=== PATIENT | male | born 1985 | race Caucasian/White ===

== ENCOUNTER 2021-09-06 15:00 | Emergency (ER) | payer OTHER, SELFPAY ==
[2021-09-06 15:01] VITALS: BP 157/96; PULSE 85; RESP 16; TEMP 36.9; O2SAT 96; BMI 33.2
--- NOTE | 2021-09-06 15:14 | PC.NURSE ---
pt L ring finger soaking in hibiclens and saline
--- NOTE | 2021-09-06 15:17 | PC.NURSE ---
JHONATAN DAVIS at
--- NOTE | 2021-09-06 15:19 | XR_ITS ---
FINAL REPORT CLINICAL HISTORY: drill, trauma, laceration distal tip of 4th digit FINDINGS: LEFT FINGER 3 views of the left 4th digit were obtained. There is no acute fracture or dislocation. The joint spaces are intact. There is a questionable less than 1 mm foreign body in the volar distal aspect of the 4th digit. IMPRESSION: No acute bony abnormality. Questionable foreign body as described. Reviewed, Interpreted and Dictated by Man Browne III, MD Transcribed by Lilliam Garcia Authenticated and [facility][1]
--- NOTE | 2021-09-06 15:19 | HMH.EDGENADL ---
ED Disposition Clinical Impression: Laceration of left ring finger Qualifiers: Encounter type: initial encounter Damage to nail status: without damage Foreign body presence: without foreign body Qualified Code(s): S61.215A - Laceration without foreign body of left ring finger without damage to nail, initial encounter Disposition: Home, Self-Care Condition on Discharge: Good Instructions: DI for Laceration Repair Additional Instructions: You have been evaluated for laceration to the left ring finger. Sutures are absorbable. They should dissolve. Have a wound check with your primary care doctor within the next few days. Any remaining sutures should be removed in 7 to 10 days. Take Keflex as prescribed. Use triple antibiotic ointment. Keep wound dry for 24 hours, you may shower normally after that. Return to the emergency department for any new or worsening symptoms, redness, wound drainage, pain, swelling, signs of infection. Prescriptions: cephALEXin [cephALEXin 500mg capsule*] 500 mg PO Q6H #20 cap Transmission Status: Received by [facility] Referrals: Provider,Referral, [Primary Care Provider] - Time of Disposition: 15:24 - Critical Care Critical Care Time: No Attestation: On , the high probability of a clinically significant, sudden or life threatening deterioration of the following system(s) required my full and direct attention, intervention and personal management. The time I documented below is in addition to time spent performing reported procedures but includes the following listed in this critical care notation. Medical Decision Making - Medical Records Medical records reviewed: Yes: I reviewed the patient's medical records. - Ramy Inquiry Pt receiving controlled substance: No Vital Signs: 09/06/21 15:01 09/06/21 16:22 Temperature 98.4 F 98 F Temperature Source Oral Oral Pulse Rate 74 Pulse Rate [Right Radial] 85 Respiratory Rate 16 16 Blood Pressure 136/65 Blood Pressure [Right Arm] 157/96 H Blood Pressure Mean [Right Arm] 116 Blood Pressure Source [Right Arm] Automatic Cuff Blood Pressure Position Sitting Blood Pressure Position [Right Arm] Sitting 02 Sat by Pulse Oximetry 96 Oxygen Delivery Method Room Air Room Air Orders (Tests/Meds): ED MEDICATIONS Discontinued Medications Generic Name Dose Route Start Last Admin Trade Name Freq PRN Reason Stop Dose Admin Lidocaine HCl 5 ml 09/06/21 15:19 09/06/21 15:32 Lidocaine 1% 10ml Mdv SQ 06/06/22 15:20 5 ml ONCE ONE Administration Tetanus/Reduced Diphtheria/Acell Pertussis 0.5 ml 09/06/21 15:14 09/06/21 15:31 Tet/Diphth/Pert-Adult 0.5ml Syringe IM 09/06/21 15:15 0.5 ml .ONCE ONE Administration - Radiology Data #1 Image(s): Finger(s)/Thumb Image Reviewed: Yes I reviewed the patient's radiology results, Yes I discussed the image results w/the radiologist Preliminary Findings: Abnormal Medical Decision Narrative: In summary this is a previously healthy, [id number] male presenting to the emergency department with an injury to the ring finger of the left hand. Patient clinically stable on arrival. Vital signs within normal limits. Wound copiously irrigated. Will obtain x-ray. Tetanus updated. X-ray shows no distal tuft fracture. Comment on a possibly less than 1 mm foreign body. Digital block performed with 1% lidocaine. I explored the wound. No foreign body identified. Laceration repaired with 2 absorbable sutures. Procedure well-tolerated. Patient given prescription for Keflex. Counseled on the importance of PCP follow-up. Given return precautions. Stable for discharge. General Adult HPI - General Chief complaint: Wound/Laceration Stated complaint: laceration on left hand ring finger Time Seen by Provider: 09/06/21 15:19 Mode of Arrival: Ambulatory Limitations: No Limitations Description of Symptoms (Recalled from ER Triage Doc. by RN): pt reports a
--- NOTE | 2021-09-06 15:22 | PC.NURSE ---
promise notified of xray order, spoke with krystal
[2021-09-06 16:22] VITALS: BP 136/65; PULSE 74; RESP 16; TEMP 36.6; O2SAT 98
== END 2021-09-06 16:24 | disposition home or self-care (01) ==
LOC: ER 16:09
PROVIDERS: Emergency Provider Emergency Medicine
DX: S61.215A Laceration without foreign body of left ring finger without damage to nail, initial encounter (principal); W27.8XXA Contact with other nonpowered hand tool, initial encounter; Y92.89 Other specified places as the place of occurrence of the external cause; Z23 Encounter for immunization
CPT/HCPCS: 12001; 73140; 90471; 90715; 99283

== ENCOUNTER → 2021-09-24 14:22 | Outpatient (CLI) | payer OTHER, SELFPAY ==
--- NOTE | 2021-09-24 14:26 | XR_ITS ---
FINAL REPORT CLINICAL HISTORY: wrist pain - carpel tunnel - numbness FINDINGS: LEFT WRIST Three views of the left wrist demonstrate no acute fracture or dislocation. The visualized joint spaces are normally aligned. The soft tissues are unremarkable. IMPRESSION: No acute bony abnormality. Reviewed, Interpreted and Dictated by Man Browne III, MD Transcribed by Kalpana Sethi Authenticated and . [facility]
--- NOTE | 2021-09-24 14:26 | XR_ITS ---
FINAL REPORT CLINICAL HISTORY: wrist pain - carpel tunnel - numbness FINDINGS: RIGHT WRIST Three views of the right wrist demonstrate no acute fracture or dislocation. The visualized joint spaces are normally aligned. The soft tissues are unremarkable. IMPRESSION: No acute bony abnormality. Reviewed, Interpreted and Dictated by Man Browne III, MD Transcribed by Kalpana Sethi Authenticated and [facility]
== END ==
PROVIDERS: Visit Provider Orthopaedic Surgery
DX: M25.531 Pain in right wrist (principal); M25.532 Pain in left wrist
CPT/HCPCS: 73110

== ENCOUNTER → 2022-03-31 10:16 | Outpatient (CLI) | payer OTHER, SELFPAY ==
--- NOTE | 2022-03-31 10:16 | US_ITS ---
FINAL REPORT TECHNIQUE: Ultrasound images of the testicles were obtained bilaterally. Color Doppler images were obtained. CLINICAL HISTORY: N50.89 - Other specified disorders of the male genital or... Palpable area left testicle x1 month, no injury. FINDINGS: The right testicle measures 4.2 x 3.2 x 2.2 cm. There is normal blood flow. No mass is identified. There is a small right hydrocele. There is a 9 mm calcification adjacent to the inferior right testicle. The left testicle measures 4.8 x 2.9 x 2.3 cm. There is normal blood flow. There is a small left hydrocele. There is a 3 mm cystic area in or adjacent to the periphery of the posterior left testicle, favor a cyst. IMPRESSION: 3 mm cystic area in or adjacent to the periphery of the posterior left testicle, favor a cyst. If indicated, this could be further evaluated with follow-up ultrasound to evaluate for stability. Reviewed, Interpreted and Dictated by Man Browne III, MD Transcribed by Lilliam Garcia Authenticated and [facility]
== END ==
PROVIDERS: PCP Family Medicine; Visit Provider Family Medicine
DX: N50.89 Other specified disorders of the male genital organs (principal)
CPT/HCPCS: 76870

== ENCOUNTER 2022-08-03 18:45 | Emergency (ER) | payer OTHER, SELFPAY ==
[2022-08-03 18:54] VITALS: BP 116/76; PULSE 83; RESP 16; TEMP 36.8; O2SAT 96; BMI 28.7
--- NOTE | 2022-08-03 19:30 | EXP.UTC ---
Discharge Plan Disposition Patient Disposition: Home, Self-Care Condition: Good Prescriptions Prescriptions: No Action prednisone 20 mg tablet See Rx Instructions .ROUTE .COMPLEX Qty: 15 1RF Rx Instructions: two daily for 5d, one daily for 5; naproxen [Naprosyn] 500 mg tablet 500 mg PO BID Qty: 60 3RF Referrals Follow up/Referrals: Provider,Referral, [Primary Care Provider] - See instructions Activity Restrictions/Add. Instructions Additional Instructions/Restrictions: *Monitor Temp, Over the counter Motrin or Tylenol as directed/as needed Tylenol every 4 hours and Motrin every 6 hours (as long as your family doctor has told you that you can take it) for fever or pain. and straight to ER if unable to lower temp less than 101.0 after medication given *Warm salt water gargles may help to soothe the throat *Throat Lozenges? *Warm fluids like tea with honey may help to soothe the throat? *Sleep elevated *Humidifier/Vaporizer Zofran as prescribed for Nausea FOllow up with your Family Doctor if no improvement or any worsening of symptoms Straight to ER if any life threatening symptoms Your throat swab was sent for culture. Those results are typically sent to your primary care. Be sure to follow up in 2-3 days with your family doctor/primary care physician if no improvement so they can review those result and treat if necessary. If you don?t have a primary care doctor Follow up IMMEDIATELY for new or worsening symptoms or no Noticeable improvement over the next 48-72 hours. 911 for difficulty breathing or swallowing Clinical Impressions Clinical Impression: Nausea Instructions Patient Instructions: Nausea (Alternative Therapy), DI for Viral Syndrome, DI for Nausea -- Adult Discharge ED Provider: Betty You [facility] General Stated complaint: Headache,Nausea Mode of Arrival: Ambulatory Source of Information: Patient Limitations: No Limitations Time Seen by Provider: 08/03/22 19:30 Description of Symptoms (Recalled from Triage Doc. by RN): pt c/o a MENON, light headed, nausea, fatigue and loss of appetite. ongoing x5d HEENT Symptoms (Recalled from RN notes): Yes Resp Symptoms (Recalled from RN notes): No Skin Symptoms (Recalled from RN notes): No MS Symptoms (Recalled from RN notes): No Functional Status (Recalled from RN notes): wnl History of Present Illness Provider Complaint: Patient states that he has been having headache on and off, achy, nausea, upset stomach, fatigue and loss of appetite for the last 5 days States that he is feeling better now but stomach is still upset States that he has been sleeping alot and over all not feeling well States that he has been working and is not able to miss work recently dx with Cryptosporidium but he isnt having any diarrhea Related Data Previous Rx's Medication Instructions Recorded naproxen 500 mg tablet (Naprosyn) 500 mg PO BID #60 tabs 06/23/22 prednisone 20 mg tablet See Rx Instructions .Route 06/23/22 .COMPLEX #15 tabs Allergies Allergy/AdvReac Type Severity Reaction Status Date / Time No Known Allergies Allergy Verified 08/03/22 18:56 Worker's Comp Is this a Worker's Comp case?: No [facility] Disclaimer: The information contained in this section may have been updated after the patient was seen, as this information can be updated by other users. Social History Smoking Status: Never smoker alcohol intake: never current occupational status: employed Travel in the last 8 weeks: None ROS Obtained: Yes All systems reviewed & no additional complaints except as documented and Yes Systems reviewed as appropriate & no additional complaints except as documented Constitutional Constitutional: Reports system reviewed and no additional complaints, except as documented, Reports as per HPI, Reports body ache and Reports headache(s) ENT Ears, Nose
[2022-08-03 20:02] VITALS: BP 0/0; PULSE 0; RESP 0; TEMP -17.7; TEMP 0
[2022-08-03 21:19] LABS: Coronavirus 19, PCR Not Detected (NotDetected); Influenza A, PCR Not Detected (NotDetected); Influenza B, PCR Not Detected (NotDetected)
== END 2022-08-03 20:04 | disposition home or self-care (01) ==
PROVIDERS: Emergency Provider Nurse Practitioner
DX: R11.0 Nausea (principal); R51.9 Headache, unspecified; R53.83 Other fatigue
CPT/HCPCS: 96372; 99212; 99214; C9803; G0463; U0003; U0005

== ENCOUNTER 2022-08-03 23:06 | Emergency (ER) | payer OTHER, SELFPAY ==
[2022-08-03 23:16] VITALS: BP 141/94; PULSE 70; RESP 13; TEMP 36.8; O2SAT 99; BMI 28.7
[2022-08-03 23:30] LABS: Basophils % 0.6 % (0.1-2.0); Eosinophils # 0.3 K/mm3 (0.0-0.4); Eosinophils % 5.4 % (0.1-12.0); Hematocrit 44.1 % (42.0-52.0); Hemoglobin 14.5 g/dL (14.1-18.0); Lymphocytes % 21.3 % (10-50); Mean Corpuscular HGB Conc 32.8 g/dL (31.8-35.4); Mean Corpuscular Hemoglobin 27.2 pg (27.0-31.2); Mean Corpuscular Volume 82.7 fl (80-94); Mean Platelet Volume 7.1 fl (7.4-10.4); Monocytes # 0.6 K/mm3 (0.1-1.0); Monocytes % 11.7 % (1.7-9.3); Neutrophils # 2.8 K/mm3 (1.8-7.8); Neutrophils % 60.9 % (37.0-80.0); Platelet Count 216 K/mm3 (142-424); Red Blood Count 5.33 M/mm3 (4.60-6.20); Red Cell Distribution Width 12.9 % (11.5-17.5); White Blood Count 4.7 K/mm3 (4.8-10.8)
[2022-08-03 23:31] VITALS: BP 126/81; PULSE 68; RESP 18; O2SAT 98
[2022-08-03 23:31] LABS: Chloride 92 mmol/L (98-107); Potassium 3.7 mmoL/L (3.5-5.1); Sodium 134 mmol/L (136-145)
[2022-08-03 23:34] LABS: Alanine Aminotransferase 97 U/L (12-78); Albumin Level 3.9 g/dl (3.5-5.0); Albumin/Globulin Ratio 1.4 (1.1-1.8); Alkaline Phosphatase 74 U/L (38-126); Anion Gap 13.7 mEq/L (5-15); Aspartate Amino Transferase 114 U/L (17-59); Bilirubin,Total 0.6 mg/dl (0.2-1.3); Blood Urea Nitrogen 12 mg/dl (9-20); Carbon Dioxide 32 mmol/L (22.0-30.0); Creatinine Clearance Estimated 143 mL/min (50-200); Estimated Glomerular Filt Rate 94 ml/min (>60); GFR (African American) 114 ML/MIN (>60); Globulin 2.7 g/dL (1.3-3.2); Total Protein,Serum 6.6 g/dl (6.3-8.2)
[2022-08-03 23:35] LABS: Calcium 8.5 mg/dl (8.4-10.2); Glucose 100 mg/dl (74-100); Lipase 68 U/L (23-300)
[2022-08-03 23:37] LABS: Monoscreen (Rapid) Negative (Negative)
--- NOTE | 2022-08-03 23:42 | HMH.EDGENADL ---
Discharge Plan Disposition Patient Disposition: Home, Self-Care Chief Complaint: Abdominal Pain Prescriptions Prescriptions: No Action omeprazole 20 mg Tablet,Disintegrat, Delay Rel 20 mg PO DAILY Referrals Follow up/Referrals: Alex Dyer MD [Primary Care Provider] - See instructions Clinical Impressions Clinical Impression: Lethargy Instructions Patient Instructions: DI for Acute Abdominal Pain Discharge ED Provider: Edin Hdz General Adult HPI General Chief complaint: Abdominal Pain Stated complaint: upper abdominal pain, nausea, not eating Time Seen by Provider: 08/03/22 23:22 Mode of Arrival: Family Vehicle Source of Information: Patient Limitations: No Limitations Description of Symptoms (Recalled from ER Triage Doc. by RN): 37 yo male presents with a chief complaint of midepigastric pain/bloating/luq pain with palpation/afebrile but has chills/poor appetite/nausea unsettled stomach /sleeping 12-14 hours a day (abnormal) . Past med history: GERD, Past surg history: none; NKA. 10 LB WEIGHT LOSS in one week. Normal UOP. no obvious skin lesions or anomalies present. Contact with who has scours as a result of interaction with calves. History of Present Illness HPI narrative: 37-year-old white male presents with weakness and some abdominal pain for about a week. He reports that he goes to work and does what he has to do comes home falls asleep and sleeps until he has to go back to work. This is most unusual for him he normally is very healthy eats organic foods as no other medical problem known allergies no known tick bites etc. His did get diarrhea from the calf recently Related Data Home Medications Medication Instructions Recorded Confirmed omeprazole 20 mg delayed 20 mg PO DAILY gerd 08/03/22 08/03/22 release,disintegrating tablet Allergies Allergy/AdvReac Type Severity Reaction Status Date / Time No Known Allergies Allergy Verified 08/03/22 18:56 [facility] Disclaimer: The information contained in this section may have been updated after the patient was seen, as this information can be updated by other users. Social History Smoking Status: Never smoker alcohol intake: never current occupational status: employed Travel in the last 8 weeks: None ROS Obtained: Yes All systems reviewed & no additional complaints except as documented Physical Exam General General appearance: alert and lethargic Head Head exam: atraumatic and normocephalic Eye Eye exam: Present normal appearance ENT ENT exam: Present normal exam Neck Neck exam: Present normal inspection; Absent lymphadenopathy Chest Chest inspection: Present normal inspection Respiratory Respiratory exam: Present normal lung sounds bilaterally; Absent respiratory distress or wheezes Cardiovascular Cardiovascular exam: Present regular rate and normal rhythm Abdominal Exam Abdominal exam: Present soft and tenderness (Left upper quadrant) Neurological Exam Neurological exam: Present alert, oriented X3 and CN II-XII intact Medical Decision Making Medical Records MR Comment: 37-year-old white male presents with a week history of excessive lethargy with some left upper quadrant abdominal pain decreased ability to eat no nausea no fevers chilling but with the report that he is basically asleep every second he is not at work. And has had a little weight loss with this as well. Evaluation has included CBC CMP Monospot urinalysis which is revealed some mild anomalies but some elevation of his liver enzymes. CT abdomen and pelvis with contrast really revealed no pathology that would explain the constellation. Gallbladder was a little dilated but no real pathology was identified. He was given 2 L of normal saline in the emergency department and at this point we have no definitive diagnosis the pathology. Possibilities would include possible tickb
--- NOTE | 2022-08-03 23:45 | PC.NURSE ---
gave pt the urinal to use for urine sample.
[2022-08-03 23:57] LABS: Microscopic, Urine URINE MICROSCOPIC (MICROSCOPIC)
[2022-08-04] VITALS: BP 149/95; PULSE 58; RESP 16; O2SAT 99
[2022-08-04] LABS: Appearance,Urine CLEAR (Clear); Blood, Urine TRACE-I (Negative); Color,Urine YELLOW (Yellow); Glucose,Urine (UA) Negative (Negative); Ketones,Urine TRACE (Negative); Leukocyte Esterase,Urine Negative (Negative); Nitrate,Urine Negative (Negative); Protein,Urine 1+ (Negative); Specific Gravity, Urine 1.015 (1.005-1.030); Urobilinogen,Urine 0.2 EU/dl (0.2)
--- NOTE | 2022-08-04 | CT_ITS ---
PROCEDURE INFORMATION: Exam: CT Abdomen And Pelvis With Contrast Exam date and time: 08/04/2022 12:11 AM Age: 37 years old Clinical indication: Abdominal pain; Localized; Upper; Patient HX: C/O pain since Monday TECHNIQUE: Imaging protocol: Computed tomography of the abdomen and pelvis with contrast. Radiation optimization: All CT scans at this facility use at least one of these dose optimization techniques: automated exposure control; mA and/or kV adjustment per patient size (includes targeted exams where dose is matched to clinical indication); or iterative reconstruction. Contrast material: ISOVUE; Contrast volume: 75 ml; Contrast route: IV; REPORTING DATA: Count of CT and Cardiac NM exams in prior 12 months: This patient has received 0 known CTs and 0 known cardiac nuclear medicine studies in the 12 months prior to the current study. COMPARISON: US TESTICULAR 03/31/2022 10:23 AM FINDINGS: Lungs: The visualized lung bases are clear. Pleural spaces: There are no pleural effusions. Heart: The visualized portions of the heart are unremarkable. There is no evidence of pericardial fluid collections. Liver: There is diffuse decrease in hepatic/liver parenchymal density consistent with fatty infiltration. There is mild intrahepatic biliary ductal dilatation. Gallbladder and bile ducts: There is common bile duct dilatation measuring approximately 12 mm. No definite filling defects. The gallbladder appears mildly prominent measuring 8 by 3.6 cm. No gallbladder wall thickening or pericholecystic fluid. Pancreas: The pancreas is normal. Spleen: The spleen is normal. Adrenal glands: The adrenal glands are normal. Kidneys and ureters: There is a simple 16 mm cyst in the right kidney. There are 2 small left renal hypodensities which are too small to accurately characterize. Statistically, these may be cysts. No hydronephrosis. Stomach and bowel: The stomach is normal. The duodenum is unremarkable. Lack of gastrointestinal contrast limits evaluation of bowel. There is mildly excessive colonic stool content. Unopacified loops of small bowel are within range of normal. Appendix: A normal appendix is identified. Intraperitoneal space: There is no evidence of free intraperitoneal or pelvic fluid. No evidence of intraperitoneal free air. Vasculature: No aneurysm. No dissection. Lymph nodes: There are multiple small nonspecific lymph nodes in the mesenteric fat of the right lower quadrant and central mesentery, but there are no nodes of pathologic dimensions present. There is no evidence of pathologic adenopathy. Urinary bladder: The bladder is incompletely distended.There is moderate bladder wall thickening. Reproductive: The prostate and seminal vesicles are normal. Bones/joints: The thoracolumbar spine demonstrates mild degenerative changes at multiple levels. There is grade 1 anterior spondylolisthesis of L5 on S1 . Bilateral pars interarticularis defects are present.There is no evidence of acute fracture. Soft tissues: There is a tiny fat-containing umbilical hernia. No significant soft tissue edema. IMPRESSION: 1. Mild gallbladder prominence with common bile duct dilatation in minor intrahepatic biliary ductal dilatation.. Recommend right upper quadrant ultrasound for further evaluation. 2. Fatty hepatic infiltration. 3. Moderate bladder wall thickening consistent with chronic outflow obstruction, neoplasm, incomplete distention or cystitis. Correlate clinically and consider urologic consultation. 4. Mild constipation. 5. Multiple small nonspecific lymph nodes in the mesenteric fat of the right lower quadrant and ce
[2022-08-04 00:01] LABS: Bilirubin,Urine 1+ (Negative)
[2022-08-04 00:15] LABS: Bacteria,Urine Trace /lpf; RBC,Urine Occasional #/hpf (0-3); WBC,Urine Occasional #/hpf (0-3)
[2022-08-04 00:30] VITALS: BP 132/79; PULSE 64; RESP 18; O2SAT 100
[2022-08-04 01:01] VITALS: BP 122/75; PULSE 70; RESP 14; O2SAT 98
[2022-08-04 01:31] VITALS: BP 132/81; PULSE 70; RESP 16; O2SAT 100
[2022-08-04 02:15] VITALS: BP 132/70; PULSE 76; RESP 15; TEMP 36.8; O2SAT 98
== END 2022-08-04 02:17 | disposition home or self-care (01) ==
PROVIDERS: Emergency Provider Emergency Medicine; PCP Family Medicine
DX: R10.13 Epigastric pain (principal); R53.83 Other fatigue; R11.0 Nausea
CPT/HCPCS: 74177; 80053; 81001; 83690; 85025; 86318; 96360; 99284; 99285; Q9967

== ENCOUNTER → 2022-08-09 06:24 | Outpatient (CLI) | payer OTHER, SELFPAY ==
--- NOTE | 2022-08-09 06:27 | US_ITS ---
FINAL REPORT TECHNIQUE: Ultrasound images of the abdomen were obtained. CLINICAL HISTORY: abdominal pain, weight loss FINDINGS: The pancreas is obscured by bowel gas. The liver is unremarkable. There is extensive sludge in the gallbladder without stones or wall thickening. There is mild extrahepatic biliary ductal dilatation measuring up to 10 mm. The right kidney measures 13.4 cm in length and is normal in echogenicity without hydronephrosis. The left kidney measures 11.6 cm in length and is normal in echogenicity without hydronephrosis. There are small benign-appearing cysts in the bilateral kidneys. The spleen is mildly enlarged measuring 13 cm. The aorta is normal in caliber. The vena cava is unremarkable. IMPRESSION: Mild nonspecific biliary ductal dilatation. MRCP may be considered if there is abnormal liver function test. Mild nonspecific splenomegaly. Reviewed, Interpreted and Dictated by Karyna Bermudez MD Transcribed by Missy Davis Authenticated and [facility]
== END ==
PROVIDERS: PCP Family Medicine; Visit Provider Family Medicine
DX: R10.9 Unspecified abdominal pain (principal); R63.4 Abnormal weight loss
CPT/HCPCS: 76700

== ENCOUNTER 2023-07-23 20:38 | Emergency (ER) | payer OTHER, SELFPAY ==
[2023-07-23 20:45] VITALS: BP 102/75; PULSE 61; RESP 18; TEMP 36.8; O2SAT 97; BMI 29.9
--- NOTE | 2023-07-23 21:37 | ED_ITS ---
Discharge Plan Disposition Patient Disposition: Home, Self-Care Condition: Good Prescriptions Prescriptions: New cephalexin 500 mg capsule 500 mg PO BID 10 Days Qty: 20 0RF No Action omeprazole 20 mg Tablet,Disintegrat, Delay Rel 20 mg PO DAILY Referrals Follow up/Referrals: Alex Dyer MD [Primary Care Provider] - See instructions Activity Restrictions/Add. Instructions Additional Instructions/Restrictions: You may wash with soap and water. Do not put anything else on the wound. May need to keep a hat on to prevent sunburn. Turn to the ER for any worsening signs or symptoms including drainage pain redness swelling etc. as needed. [place] need to come out in 5 to 7 days Clinical Impressions Clinical Impression: Laceration of scalp Instructions Patient Instructions: DI for Laceration Repair Discharge ED Provider: George Barkley General Adult HPI <ARLYN Fermin - Last Filed: 07/23/23 23:12> General Chief complaint: Wound/Laceration Stated complaint: AO04/ hit head lac across top of head Time Seen by Provider: 07/23/23 21:37 Mode of Arrival: Ambulatory Source of Information: Patient Limitations: No Limitations Description of Symptoms (Recalled from ER Triage Doc. by RN): Pt stated that him and his were having a contest who can put post in with less hits. He was trying to beat his they were putting post in with post digger. He pulled it up caught on post pulled down and hit top of head. He has a laceration on front middle of head. He has described his pain as a 1/10. Denies losing consciousness. This happened at 1730 today. He finished putting in post and then came in here to get it fix. History of Present Illness HPI narrative: Patient presents for evaluation for laceration to his scalp. 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 He was not knocked unconscious but the pain made him drop to his knees. He was able to finish his work and actually presented this evening. Injury occurred around 12 noon today patient reports no loss of sense of taste or smell vision changes nausea vomiting or any other focal neurologic symptoms. Related Data Home Medications Medication Instructions Recorded Confirmed omeprazole 20 mg delayed 20 mg PO DAILY gerd 08/03/22 08/05/22 release,disintegrating tablet Previous Rx's Medication Instructions Recorded cephalexin 500 mg capsule 500 mg PO BID 10 days #20 caps 07/23/23 Allergies Allergy/AdvReac Type Severity Reaction Status Date / Time No Known Allergies Allergy Verified 08/05/22 10:28 [facility] <ARLYN Fermin - Last Filed: 07/23/23 23:12> [facility] Disclaimer: The information contained in this section may have been updated after the patient was seen, as this information can be updated by other users. Family History (Updated 08/05/22 @ 10:36 by Maureen Neville CMA) Other Cancer Heart attack No significant family history Social History Smoking Status: Never smoker alcohol intake: never current occupational status: employed Travel in the last 8 weeks: None <ARLYN Fermin Last Filed: 07/23/23 23:12> ROS Obtained: Yes Systems reviewed as appropriate & no additional complaints except as documented Physical Exam <ARLYN Fermin - Last Filed: 07/23/23 23:12> General General appearance: alert and in no apparent distress Head Head exam: atraumatic (Patient has a 7 cm semilunar laceration to the scalp in the midline anterior) Eye Eye exam: Present normal appearance, PERRL and EOMI ENT ENT exam: Present normal exam, normal oropharynx and mucous membranes moist Neck Neck exam: Present normal inspection, full ROM, trachea midline and tenderness (Tenderness to palpation along the midline of the C-spine but no deformities noted. Patient is neurovascular distally intact bilateral upper extremities); Absent lymphadenopathy Respiratory Respiratory exam: Present normal lung sounds bilaterally Cardiovascular Cardiovascular exam: Present regular rate and normal rhythm Neurological Exam Neurological exam: Present alert, oriented X3, CN II-XII intact and normal gait Medical Decision Making <ARLYN Fermin Last Filed: 07/23/23 23:12> Medical Records Medical records reviewed: Yes I reviewed the patient's medical records. Ramy Inquiry Pt receiving controlled substance: No Vital Signs: 07/23/23 20:45 Temperature 98.3 F Temperature Source Oral Pulse Rate [Right Radial] 61 Respiratory Rate 18 Blood Pressure [Right Arm] 102/75 L Blood Pressure Mean [Right Arm] 84 Blood Pressure Source [Right Arm] Automatic Cuff Blood Pressure Position [Right Arm] Sitting 02 Sat by Pulse Oximetry 97 Oxygen Delivery Method Room Air Orders (Tests/Meds): ED MEDICATIONS Discontinued Medications Generic Name Dose Route Start Last Admin Trade Name Bryan PRN Reason Stop Dose Admin Acetaminophen 1,000 mg 07/23/23 22:21 07/23/23 22:37 Acetaminophen 500mg Tab PO 07/23/23 22:22 1,000 mg ONCE ONE Administration Ketorolac Tromethamine 30 mg 07/23/23 22:21 07/23/23 22:39 Ketorolac 30mg/Ml Vial IM 07/23/23 22:22 30 mg ONCE ONE Administration Lidocaine HCl 10 ml 07/23/23 22:23 07/23/23 22:39 Lidocaine 1% 10ml Mdv SQ 07/23/23 22:24 10 ml ONCE ONE Administration Tetanus/Reduced Diphtheria/Acell Pertussis 0.5 ml 07/23/23 22:21 07/23/23 22:41 Tet/Diphth/Pert-Adult 0.5ml Syringe IM 07/23/23 22:22 Not Given .ONCE ONE ORDERS Category Date Time Status CT cervical spine wo con Stat Cat Scan 07/23/23 22:[address] head/brain wo con Stat Cat Scan 07/23/23 22:22 Completed Medical Decision Narrative: In summary patient is a 38-year-old male who presents to the emergency department for evaluation of laceration to the scalp. Patient is hemodynamically stable upon arrival, afebrile. Zickel exam is remarkable for a semilunar laceration to the midline anterior forehead in the hairline. No bony deformities noted. He is currently hemostatic. Additionally patient is tender in the midline of the C-spine but has no focal neurologic deficits.. Differential diagnosis includes laceration versus skull fracture versus C-spine injury versus concussion versus intracranial hemorrhage etc. Initial workup will be conducted with CT scan of the head and C-spine. Initial interventions include Toradol Tylenol. Initial workup reviewed by me shows no acute fracture via my informal interpretation of his imaging. Upon repeat evaluation patient remains GCS = 15. Given this appropriate for discharge home with instructions to have sutures removed in 5 to 7 days. Prescription for Keflex sent to his pharmacy. Return to ER for any worsening signs of headache level of consciousness changes protracted nausea vomiting increased pain etc. <George Barkley MD - Last Filed: 07/24/23 00:07> Vital Signs: 07/23/23 20:45 Temperature 98.3 F Temperature Source Oral Pulse Rate [Right Radial] 61 Respiratory Rate 18 Blood Pressure [Right Arm] 102/75 L Blood Pressure Mean [Right Arm] 84 Blood Pressure Source [Right Arm] Automatic Cuff Blood Pressure Position [Right Arm] Sitting 02 Sat by Pulse Oximetry 97 Oxygen Delivery Method Room Air Orders (Tests/Meds): ED MEDICATIONS Discontinued Medications Generic Name Dose Route Start Last Admin Trade Name Bryan PRN Reason Stop Dose Admin Acetaminophen 1,000 mg 07/23/23 22:21 07/23/23 22:37 Acetaminophen 500mg Tab PO 07/23/23 22:22 1,000 mg ONCE ONE Administration Ketorolac Tromethamine 30 mg 07/23/23 22:21 07/23/23 22:39 Ketorolac 30mg/Ml Vial IM 07/23/23 22:22 30 mg ONCE ONE Administration Lidocaine HCl 10 ml 07/23/23 22:23 07/23/23 22:39 Lidocaine 1% 10ml Mdv SQ 07/23/23 22:24 10 ml ONCE ONE Administration Tetanus/Reduced Diphtheria/Acell Pertussis 0.5 ml 07/23/23 22:21 07/23/23 22:41 Tet/Diphth/Pert-Adult 0.5ml Syringe IM 07/23/23 22:22 Not Given .ONCE ONE ORDERS Category Date Time Status CT cervical spine wo con Stat Cat Scan 07/23/23 22:[address] head/brain wo con Stat Cat Scan 07/23/23 22:22 Completed Medical Decision Narrative: In summary patient is a 38-year-old male who presents to the emergency department for evaluation of laceration to the scalp. Patient is hemodynamically stable upon arrival, afebrile. Zickel exam is remarkable for a semilunar laceration to the midline anterior forehead in the hairline. No bony deformities noted. He is currently hemostatic. Additionally patient is tender in the midline of the C-spine but has no focal neurologic deficits.. Differential diagnosis includes laceration versus skull fracture versus C-spine injury versus concussion versus intracranial hemorrhage etc. Initial workup will be conducted with CT scan of the head and C-spine. Initial interventions include Toradol Tylenol. Initial workup reviewed by me shows no acute fracture via my informal interpretation of his imaging. Upon repeat evaluation patient remains GCS = 15. Given this appropriate for discharge home with instructions to have gold removed in 5 to 7 days. Prescription for Keflex sent to his pharmacy. Return to ER for any worsening signs of headache level of consciousness changes protracted nausea vomiting increased pain etc. Rubia DAVIS: I assumed care of the patient at the time of handoff from the prior provider. On reassessment patient carlos hemodynamically stable and well-appearing. Laceration was repaired with gold. CT imaging was independently interpreted by me and shows no evidence of intracranial bleeding, skull fracture, cervical spine fracture. These findings were communicated with patient at bedside. Patient was discharged in stable condition with wound care instructions and return precautions. I was consulted by the TAYLOR, and we discussed the complexity of the problems being addressed. I approved the treatment and management plan for this patient?s care in the Emergency Department, thus performing a substantive portion of the medical decision making. George Barkley MD Procedures <George Barkley MD - Last Filed: 07/24/23 00:07> Laceration Laceration 1: Site: scalp Size (cm): 5 Description: linear and irregular Depth: involves subcutaneous layer Local Anesthetic: lidocaine 1% Amount of anesthesia used (mL): 5 Pre-repair: deep structures intact Skin layer closed with: other (gold) Number of sutures: 6 Critical Care <ARLYN Fermin - Last Filed: 07/23/23 23:12> Critical Care Time Critical Care Time: No
--- NOTE | 2023-07-23 22:21 | CT_ITS ---
PROCEDURE INFORMATION: Exam: CT Cervical Spine Without Contrast Exam date and time: 07/23/2023 11:09 PM Age: 38 years old Clinical indication: Injury or trauma; Other: Hit in head; Laceration; Without foreign body TECHNIQUE: Imaging protocol: Computed tomography of the cervical spine without contrast. Radiation optimization: All CT scans at this facility use at least one of these dose optimization techniques: automated exposure control; mA and/or kV adjustment per patient size (includes targeted exams where dose is matched to clinical indication); or iterative reconstruction. COMPARISON: CT HEAD/BRAIN WO CON 07/23/2023 11:04 PM FINDINGS: Bones/joints: No acute fracture. Normal alignment. No significant disc bulge or herniation. No severe spinal canal stenosis. No significant neural foraminal narrowing. Lungs: Lung apices are normal. Soft tissues: Unremarkable. IMPRESSION: No acute findings.
--- NOTE | 2023-07-23 22:22 | CT_ITS ---
PROCEDURE INFORMATION: Exam: CT Head Without Contrast Exam date and time: 07/23/2023 11:04 PM Age: 38 years old Clinical indication: Injury or trauma; Other: Hit in head; Laceration; Without residual foreign body; Scalp TECHNIQUE: Imaging protocol: Computed tomography of the head without contrast. Radiation optimization: All CT scans at this facility use at least one of these dose optimization techniques: automated exposure control; mA and/or kV adjustment per patient size (includes targeted exams where dose is matched to clinical indication); or iterative reconstruction. COMPARISON: No relevant prior studies available. FINDINGS: Brain: No evidence for intracranial hemorrhage, mass lesions or acute stroke. Cerebral ventricles: No ventriculomegaly. Pituitary gland and sella: Negative Paranasal sinuses: Visualized sinuses are unremarkable. No fluid levels. Mastoid air cells: Visualized mastoid air cells are well aerated. Orbital cavities: Negative. Parotid and submandibular glands: Negative Bones/joints: Unremarkable. No acute fracture. Soft tissues: Frontal scalp laceration with skin gold. Vasculature: Negative. IMPRESSION: 1. Frontal scalp laceration with skin gold. 2. No evidence for intracranial hemorrhage, mass lesions or acute stroke.
[2023-07-23] MEDS: ACETAMINOPHEN 500MG TAB 1000 MG PO (22:37)
[2023-07-23] MEDS: KETOROLAC 30MG/ML VIAL 30 MG IM (22:39)
[2023-07-23] MEDS: LIDOCAINE 1% 10ML MDV 10 ML SQ (22:39)
--- NOTE | 2023-07-23 22:40 | PC.NURSE ---
Pt states he had a tetanus shot less than a year ago.
[2023-07-24 00:05] VITALS: BP 117/73; PULSE 57; RESP 16; TEMP 36.5; O2SAT 98
== END 2023-07-24 00:02 | disposition home or self-care (01) ==
PROVIDERS: Emergency Provider Emergency Medicine; PCP Family Medicine
DX: S01.01XA Laceration without foreign body of scalp, initial encounter (principal); Z23 Encounter for immunization; W20.8XXA Other cause of strike by thrown, projected or falling object, initial encounter
CPT/HCPCS: 12002; 70450; 72125; 90471; 96372; 99285

== ENCOUNTER 2024-10-10 10:23 | Outpatient (CLI) | payer OTHER, SELFPAY ==
[2024-10-11 14:54] LABS: Iron 93 ug/dL (49-181)
[2024-10-11 15:47] LABS: Total Iron Binding Capacity 302 ug/dL (261-462)
== END 2024-10-11 23:59 | disposition home or self-care (01) ==
LOC: LAB.DROPOF 10-17 10:31
PROVIDERS: PCP Family Medicine; Visit Provider Family Medicine
DX: D64.9 Anemia, unspecified (principal)
CPT/HCPCS: 83540; 83550

== ENCOUNTER 2024-10-10 13:58 | Outpatient (CLI) | payer OTHER, SELFPAY ==
[2024-10-10 18:47] LABS: Hematocrit 42.3 % (42.0-52.0); Hemoglobin 14.1 g/dL (14.1-18.0); Immature Granulocytes % 0.3 %; Mean Corpuscular HGB Conc 33.3 g/dL (31.8-35.4); Mean Corpuscular Hemoglobin 28.2 pg (27.0-31.2); Mean Corpuscular Volume 84.6 fl (80-94); Nucleated Red Blood Cells % 0 %; Platelet Count 285 K/mm3 (142-424); Red Blood Count 5.00 M/mm3 (4.60-6.20); Red Cell Distribution Width-SD 39.8 fL; White Blood Count 7.0 K/mm3 (4.8-10.8)
[2024-10-10 19:21] LABS: Alanine Aminotransferase 32 U/L (12-78); Albumin Level 4.3 g/dl (3.5-5.0); Albumin/Globulin Ratio 1.9 (1.1-1.8); Alkaline Phosphatase 67 U/L (38-126); Anion Gap 13.2 mEq/L (5-15); Aspartate Amino Transferase 30 U/L (17-59); Bilirubin,Total 0.4 mg/dl (0.2-1.3); Blood Urea Nitrogen 17 mg/dl (9-20); Calcium 9.2 mg/dl (8.4-10.2); Carbon Dioxide 29 mmol/L (22.0-30.0); Chloride 99 mmol/L (98-107); Cholesterol 194 mg/dl (140-200); Creatinine,Serum 1.00 mg/dl (0.66-1.25); Estimated Glomerular Filt Rate 83 ml/min (>60); GFR (African American) 100 ML/MIN (>60); Globulin 2.3 g/dL (1.3-3.2); Glucose 95 mg/dl (74-100); HDL Cholesterol 56 mg/dl (40-60); Potassium 4.2 mmoL/L (3.5-5.1); Sodium 137 mmol/L (136-145); Total Protein,Serum 6.6 g/dl (6.3-8.2); Triglycerides 141 mg/dl (30-150)
[2024-10-10 19:52] LABS: Thyroid Stimulating Hormone 1.59 uIU/mL (0.465-4.68)
[2024-10-10 20:10] LABS: Hepatitis C Ab Qual. W/ RFX NEGATIVE (Negative)
[2024-10-12 06:37] LABS: Hepatitis B Surface Antigen Negative (Negative)
== END 2024-10-10 23:59 | disposition home or self-care (01) ==
LOC: LAB.DROPOF 10-11 13:45
PROVIDERS: PCP Family Medicine; Visit Provider Family Medicine
DX: D70.9 Neutropenia, unspecified (principal); D64.9 Anemia, unspecified; E87.1 Hypo-osmolality and hyponatremia; R79.89 Other specified abnormal findings of blood chemistry; Z11.59 Encounter for screening for other viral diseases
CPT/HCPCS: 80053; 80061; 84443; 85025; 86803; 87340; 87389